=== PATIENT | male | born 1975 | race African-American/Black ===

== ENCOUNTER 2016-03-29 10:03 | Emergency (ER) | payer BC ==
[~2016-03-29] VITALS: Ht 193 cm; Wt 118.4 kg
--- NOTE | 2016-03-29 11:09 | RAD ---
Indication pain. AP oblique and lateral views of the left knee were obtained. No acute finding is seen. There is a small joint effusion
[2016-03-29 12:11] VITALS: BP 136/78
--- NOTE | 2016-03-29 12:27 | PHYS DOC ---
Past Medical History Past Medical History: No Pertinent History Past Surgical History: Other Additional Past Surgical Histo: left meniscus repair Alcohol Use: None Drug Use: None Adult General Chief Complaint Chief Complaint: KNEE INJURY HPI HPI Patient is a 41 year old male presents emergency department stating that he's had left knee meniscus repair in July. He states that last night he developed severe pain in his left knee and in the posterior part of the knee as well as posterior calf area. He denies any numbness or tingling down to the foot area. He states he has increased pain with ambulation. He denies taking anything for the pain and discomfort. Patient denies any trauma or injury to the knee. Review of Systems Review of Systems Constitutional: Denies fever or chills [] Eyes: Denies change in visual acuity, redness, or eye pain [] HENT: Denies nasal congestion or sore throat [] Respiratory: Denies cough or shortness of breath [] Cardiovascular: No additional information not addressed in HPI [] GI: Denies abdominal pain, nausea, vomiting, bloody stools or diarrhea [] : Denies dysuria or hematuria [] Musculoskeletal: Denies back pain. Left knee pain Integument: Denies rash or skin lesions [] Neurologic: Denies headache, focal weakness or sensory changes [] Current Medications Current Medications Current Medications Medications (Trade) Dose Ordered Sig/Faisal Start Time Stop Time Status Last Admin Dose Admin Acetaminophen/ Hydrocodone Bitart (Lortab 5/325) 1 tab 1X ONCE 03/29/16 13:45 03/29/16 13:46 DC 03/29/16 13:48 1 TAB Ibuprofen (Motrin) 800 mg 1X ONCE 03/29/16 12:45 03/29/16 12:46 DC Allergies Allergies Allergies Coded Allergies Type Severity Reaction Last Updated Verified No Known Drug Allergies 03/29/16 No Physical Exam Physical Exam Constitutional: Well developed, well nourished, no acute distress, non-toxic appearance. [] HENT: Normocephalic, atraumatic, bilateral external ears normal, oropharynx moist, no oral exudates, nose normal. [] Eyes: PERRLA, EOMI, conjunctiva normal, no discharge. [] Neck: Normal range of motion, no tenderness, supple, no stridor. [] Cardiovascular:Heart rate regular rhythm, no murmur [] Lungs & Thorax: Bilateral breath sounds clear to auscultation [] Skin: Warm, dry, no erythema, no rash. [] Back: No tenderness Extremities: Left knee tenderness noted to the posterior, left posterior calf pain with positive homans sign, no cyanosis, no clubbing, ROM intact, no edema. Peripheral pulses 2+. Cap refill brisk less than 2 seconds. Neurologic: Alert and oriented X 3, normal motor function, normal sensory function, no focal deficits noted. [] Psychologic: Affect normal, judgement normal, mood normal. [] Current Patient Data Vital Signs Vital Signs Date Time Temp Pulse Resp B/P Pulse Ox O2 Delivery O2 Flow Rate FiO2 03/29/16 13:48 18 Nasal Cannula 03/29/16 12:11 98.2 71 99 98.2 EKG EKG [] Radiology/Procedures Radiology/Procedures [facility] [address] [place] [address] IMAGING REPORT Signed PATIENT: SANJAY BRENNAN ACCOUNT: [id number] : 1975 LOCATION: ER AGE: 41 SEX: M EXAM STATUS: REG ER ORD. PHYSICIAN: MARCELL EDWARDS NP REASON: postiive homans sign, posterior calf and knee pain PROCEDURE: VENOUS LOWER EXTREMITY LEFT Left leg venous Doppler study: Clinical indications: Left leg swelling and pain. Findings: Duplex sonography (including giles scale evaluation and color flow and waveform spectral analysis) of the proximal aspect of the greater saphenous vein and the proximal aspect of the profunda femoral vein and the entire length of the common femoral and superficial femoral and popliteal veins and the tibioperoneal trunk and the proximal aspect of the posterior tibial and peroneal veins of the left leg was performed. Normal compressibility, augmentation of color Doppler flow after calf compression, and respiratory variation of Doppler flow is seen. Thus, there are no sonographic findings of deep venous thrombosis within these veins. Impression: There are no sonographic findings of deep venous thrombosis within the veins discussed above of the left lower extremity. 7 cm Hutchins's cyst is evident. DICTATED and SIGNED BY: BARAK RIVERA MD DATE: 03/29/16 5739 CC: CRUZ SALCIDO; MARCELL EDWARDS RIVET FLUNKY ~ [][facility] [address] [place], [place] [id number] IMAGING REPORT Signed PATIENT: SANJAY BRENNAN ACCOUNT: [id number] : 1975 LOCATION: ER AGE: 41 SEX: M EXAM STATUS: REG ER ORD. PHYSICIAN: MARCELL EDWARDS NP REASON: pain and discomfort PROCEDURE: KNEE LEFT 3V Indication pain. AP oblique and lateral views of the left knee were obtained. No acute finding is seen. There is a small joint effusion DICTATED and SIGNED BY: JAYDE FROST MD DATE: 03/29/16 1107 CC: CRUZ SALCIDO; MARCELL EDWARDS RIVET FLUNKY ~ Course & Med Decision Making Course & Med Decision Making Pertinent Labs and Imaging studies reviewed. (See chart for details) X-rays were negative for any fractures or bony abnormalities. Ultrasound identifies a Hutchins cyst approximately 7 liters. Patient will be provided with Dr. Castillo's name and number for follow-up. He'll be placed in a knee immobilizer to help with ambulation. He'll be provided with hydrocodone for pain and discomfort also recommended ibuprofen 800 mg every 8 hours with food. Patient will be discharged home in stable condition. He was also instructed hydrocodone will cause drowsiness do not take any be alert and oriented. Patient agrees with discharge instructions treatment regimens and follow-up recommendations. Since symptoms to return back to emergency department was provided. [] Dragon Disclaimer Dragon Disclaimer This electronic medical record was generated, in whole or in part, using a voice recognition dictation system. Departure Departure Impression: Primary Impression: Hutchins's cyst of knee Disposition: 01 HOME, SELF-CARE Condition: STABLE Referrals: CRUZ SALCIDO (PCP) Patient Instructions: Hutchins's Cyst Additional Instructions: Home to rest. Ice packs on 20 minutes off 20 minutes several times a day. Elevation as much as possible. With a knee immobilizer to follow-up with orthopedic. Follow-up with orthopedic in the next 3-5 days. Hydrocodone will cause drowsiness do not take if you need to be alert and oriented. Ibuprofen 800 mg every 8 hours with food stop taking few develop an upset stomach. Return back to emergency prior signs symptoms of become worse. Scripts Hydrocodone/Apap 5-325 (Goode 5-325 Tablet)1 Each Tablet1 Tab PO PRN Q6HRS PRN PAIN #10 TAB Prov:MARCELL EDWARDS NP 03/29/16 MARCELL EDWARDS NP Mar 29, 2016 12:27
[2016-03-29] MEDS ORDERED: IBUPROFEN 800 MG TABLET. PO ONE (12:45)
[2016-03-29] MEDS ORDERED: HYDROCODONE/APAP 5/325MG TABLET. PO ONE (13:45)
--- NOTE | 2016-03-29 14:06 | RAD ---
Left leg venous Doppler study: Clinical indications: Left leg swelling and pain. Findings: Duplex sonography (including giles scale evaluation and color flow and waveform spectral analysis) of the proximal aspect of the greater saphenous vein and the proximal aspect of the profunda femoral vein and the entire length of the common femoral and superficial femoral and popliteal veins and the tibioperoneal trunk and the proximal aspect of the posterior tibial and peroneal veins of the left leg was performed. Normal compressibility, augmentation of color Doppler flow after calf compression, and respiratory variation of Doppler flow is seen. Thus, there are no sonographic findings of deep venous thrombosis within these veins. Impression: There are no sonographic findings of deep venous thrombosis within the veins discussed above of the left lower extremity. 7 cm Hutchins's cyst is evident.
[2016-03-29] MEDS ORDERED: HYDR-971 PO (14:28)
== END 2016-03-29 14:41 | disposition home or self-care (01) ==
LOC: ER 10:03
DX: M71.22 Synovial cyst of popliteal space [Baker], left knee (principal)
CPT/HCPCS: 29505; 73562; 93971; 99284-25

== ENCOUNTER 2017-09-04 03:36 | Emergency (ER) | payer SELFPAY, BC ==
[2017-09-04] MEDS ORDERED: silver sulfADIAZINE 1% CREAM 25GM TUBE. TP (04:12)
[2017-09-04] MEDS: silver sulfADIAZINE 1% CREAM 25GM TUBE. TP (04:15)
== END 2017-09-04 04:21 | disposition home or self-care (01) ==
LOC: ER 03:36
DX: T22.012A Burn of unspecified degree of left forearm, initial encounter (principal); F17.210 Nicotine dependence, cigarettes, uncomplicated
CPT/HCPCS: 16000; 99284

== ENCOUNTER 2018-07-24 08:38 | Emergency (ER) | payer BC ==
[~2018-07-24] VITALS: Ht 190.5 cm; Wt 91.7 kg
[~2018-07-24 08:38] MED LIST: HYDR-3164 PO
--- NOTE | 2018-07-24 09:12 | RAD ---
EXAM: CHEST 1 VIEW History: Left-sided chest pain COMPARISON: 01/16/2005 TECHNIQUE: Single portable radiograph of the chest FINDINGS: The cardiac silhouette is unremarkable. Mild prominent bilateral interstitial lung markings. The costophrenic sulci are clear and well demarcated. IMPRESSION: Mild congestive changes. Electronically signed by: Max Cortez MD (07/24/2018 9:10 AM) [facility]
[2018-07-24 09:16] LABS: BASO % 1 % (0-3); EOS # 0.1 x10^3/uL (0.0-0.7); EOS % 2 % (0-3); HEMOGLOBIN 13.5 g/dL (13.0-17.5); LYMPH # 1.8 x10^3/uL (1.0-4.8); LYMPH % 37 % (24-48); MEAN CORPUSCULAR HEMOGLOBIN 33 pg (25-35); MEAN CORPUSCULAR HGB CONC 35 g/dL (31-37); MEAN CORPUSCULAR VOLUME 97 fL (79-100); MONO # 0.4 x10^3/uL (0.0-1.1); MONO % 9 % (0-9); NEUT # 2.5 x10^3uL (1.8-7.7); NEUT % 52 % (31-73); PLATELET COUNT 239 x10^3/uL (140-400); RED BLOOD COUNT 4.03 x10^6/uL (4.30-5.70); RED CELL DISTRIBUTION WIDTH 13.2 % (11.5-14.5); WHITE BLOOD COUNT 4.9 x10^3/uL (4.0-11.0)
--- NOTE | 2018-07-24 09:23 | EKG ---
[facility] [address] [place] [address] Test Date: 2018-07-24 Test Time: 08:44:40 Pat Name: SANJAY PLASCENCIA Department: Room: Gender: M [employer]: : 1975 Requested By: NETTE MARRUFO Order Number: [id number] Reading MD: Measurements Intervals [place] Rate: 57 P: 63 WI: 152 QRS: 68 QRSD: 94 T: 78 QT: 424 QTc: 416 Interpretive Statements SINUS RHYTHM QRS(T) CONTOUR ABNORMALITY CONSIDER ANTEROSEPTAL MYOCARDIAL DAMAGE CONSIDER INFERIOR MYOCARDIAL DAMAGE POSSIBLY ABNORMAL ECG RI6.01 No previous ECG available for comparison
[2018-07-24 09:24] LABS: PROTHROMBIN TIME PATIENT 12.9 SEC (11.7-14.0)
[2018-07-24 09:28] LABS: D-DIMER 0.33 ug/mlFEU (0.00-0.50)
[2018-07-24 09:36] LABS: CALCIUM 9.1 mg/dL (8.5-10.1); CREATININE 0.9 mg/dL (0.7-1.3); GFR 111.4; POTASSIUM 4.1 mmol/L (3.5-5.1)
[2018-07-24 09:43] LABS: ALBUMIN 3.9 g/dL (3.4-5.0); ALBUMIN/GLOBULIN RATIO 1.2 (1.0-1.7); TOTAL BILIRUBIN 1.6 mg/dL (0.2-1.0); TOTAL PROTEIN 7.2 g/dL (6.4-8.2)
[2018-07-24] MEDS ORDERED: CONTRAST GIVEN. MC PRN (10:00)
[2018-07-24] MEDS ORDERED: IOHEXOL 350 MG/ML 100 ML VIAL. IV ONE (10:00)
[2018-07-24 10:48] LABS: BARBITURATES NEG (NEG); BENZODIAZEPINES NEG (NEG); CANNABINOIDS POS (NEG); COCAINE NEG (NEG); METHADONE NEG (NEG); OPIATES NEG (NEG); PHENCYCLIDINE NEG (NEG)
[2018-07-24 10:52] LABS: AMPHETAMINE/METHAMPHETAMINE NEG (NEG)
--- NOTE | 2018-07-24 10:56 | RAD ---
CT ANGIOGRAPHY CHEST Indication: Chest pain. Shortness of breath. . Technique: After intravenous contrast administration, CT imaging was performed of the chest. MIP reconstructions were obtained. Exposure: One or more of the following individualized dose reduction techniques were utilized for this examination: 1. Automated exposure control 2. Adjustment of the mA and/or kV according to patient size 3. Use of iterative reconstruction technique. No prior studies for comparison. FINDINGS: No evidence of thyroid mass. Mild pulsatility artifact at the ascending aorta which measures about 3 cm diameter. No aortic aneurysm or dissection. No evidence of pulmonary embolism. No pericardial effusion. No significant pleural effusion. No significant lymph node enlargement. Lungs appear clear. No evidence of infiltrate. Trachea and mainstem bronchi are patent. There are degenerative changes of the thoracic spine. Vertebral body height and alignment are maintained. No destructive bone lesion is identified. Scans to the upper abdomen are limited by technique but no obvious acute abnormality. IMPRESSION: No evidence of pulmonary embolism. Electronically signed by: Bradnon Mlaone MD (07/24/2018 10:53 AM) [id number]
[2018-07-24] MEDS ORDERED: PRED20TA PO (11:09)
--- NOTE | 2018-07-24 11:11 | PHYS DOC ---
Past Medical History Past Medical History: Hypertension Past Surgical History: Other Additional Past Surgical Histo: LEFT KNEE REPAIR Additional Information: 5 cigarettes daily Alcohol Use: Rarely Drug Use: None Adult General Chief Complaint Chief Complaint: CHEST WALL PAIN HPI HPI Patient is a 43 year old male presented to ER today for evaluation of substernal chest pain that been going on for one month. Patient said the pain is sharp, hurt worse when he had a deep breath or cough. Patient denies any history of blood clot disorder, no history of recent travel, no recent operation. Patient had no family history of heart problem. Patient denies any history diabetic. Patient has history hypertension. Review of Systems Review of Systems Constitutional: Denies fever or chills [] Eyes: Denies change in visual acuity, redness, or eye pain [] HENT: Denies nasal congestion or sore throat [] Respiratory: Denies cough or shortness of breath [] Cardiovascular: No additional information not addressed in HPI [] GI: Denies abdominal pain, nausea, vomiting, bloody stools or diarrhea [] : Denies dysuria or hematuria [] Musculoskeletal: Denies back pain or joint pain [] Integument: Denies rash or skin lesions [] Neurologic: Denies headache, focal weakness or sensory changes [] Endocrine: Denies polyuria or polydipsia [] All other systems were reviewed and found to be within normal limits, except as documented in this note. Current Medications Current Medications Current Medications Medications (Trade) Dose Ordered Sig/Faisal Start Time Stop Time Status Last Admin Dose Admin Info (CONTRAST GIVEN -- Rx MONITORING) 1 each PRN DAILY PRN 07/24/18 10:00 07/26/18 09:59 Iohexol (Omnipaque 350 Mg/ml) 100 ml 1X ONCE 07/24/18 10:00 07/24/18 10:01 DC 07/24/18 10:15 100 ML Ketorolac Tromethamine (Toradol 30mg Vial) 30 mg 1X ONCE 07/24/18 11:15 07/24/18 11:16 DC Methylprednisolone Sodium Succinate (SOLU-Medrol 125MG VIAL) 125 mg 1X ONCE 07/24/18 11:15 07/24/18 11:16 DC Allergies Allergies Allergies Coded Allergies Type Severity Reaction Last Updated Verified No Known Drug Allergies 03/29/16 No Physical Exam Physical Exam Constitutional: Well developed, well nourished, no acute distress, non-toxic appearance. [] HENT: Normocephalic, atraumatic, bilateral external ears normal, oropharynx moist, no oral exudates, nose normal. [] Eyes: PERRLA, EOMI, conjunctiva normal, no discharge. [] Neck: Normal range of motion, no tenderness, supple, no stridor. [] Cardiovascular:Heart rate regular rhythm, no murmur [] chest pain is reproducible to palpation. Lungs & Thorax: Bilateral breath sounds clear to auscultation [] Abdomen: Bowel sounds normal, soft, no tenderness, no masses, no pulsatile masses. [] Skin: Warm, dry, no erythema, no rash. [] Back: No tenderness, no CVA tenderness. [] Extremities: No tenderness, no cyanosis, no clubbing, ROM intact, no edema. [] Neurologic: Alert and oriented X 3, normal motor function, normal sensory function, no focal deficits noted. [] Psychologic: Affect normal, judgement normal, mood normal. [] Current Patient Data Vital Signs Vital Signs Date Time Temp Pulse Resp B/P (MAP) Pulse Ox O2 Delivery O2 Flow Rate FiO2 07/24/18 10:20 56 16 149/79 (102) 99 Room Air 07/24/18 08:50 98.1 98.1 Lab Values Laboratory Tests Test 07/24/18 09:05 07/24/18 10:25 White Blood Count 4.9 x10^3/uL (4.0-11.0) Red Blood Count 4.03 x10^6/uL (4.30-5.70) L Hemoglobin 13.5 g/dL (13.0-17.5) Hematocrit 39.0 % (39.0-53.0) Mean Corpuscular Volume 97 fL (79-100) Mean Corpuscular Hemoglobin 33 pg (25-35) Mean Corpuscular Hemoglobin Concent 35 g/dL (31-37) Red Cell Distribution Width 13.2 % (11.5-14.5) Platelet Count 239 x10^3/uL (140-400) Neutrophils (%) (Auto) 52 % (31-73) Lymphocytes (%) (Auto) 37 % (24-48) Monocytes (%) (Auto) 9 % (0-9) Eosinophils (%) (Auto) 2 % (0-3) Basophils (%) (Auto) 1 % (0-3) Neutrophils # (Auto) 2.5 x10^3uL (1.8-7.7) Lymphocytes # (Auto) 1.8 x10^3/uL (1.0-4.8) Monocytes # (Auto) 0.4 x10^3/uL (0.0-1.1) Eosinophils # (Auto) 0.1 x10^3/uL (0.0-0.7) Basophils # (Auto) 0.0 x10^3/uL (0.0-0.2) Prothrombin Time 12.9 SEC (11.7-14.0) Prothrombin Time INR 1.0 (0.8-1.1) D-Dimer (Patricia) 0.33 ug/mlFEU (0.00-0.50) Sodium Level 143 mmol/L (136-145) Potassium Level 4.1 mmol/L (3.5-5.1) Chloride Level 105 mmol/L (98-107) Carbon Dioxide Level 27 mmol/L (21-32) Anion Gap 11 (6-14) Blood Urea Nitrogen 11 mg/dL (8-26) Creatinine 0.9 mg/dL (0.7-1.3) Estimated GFR (Cockcroft-Gault) 111.4 BUN/Creatinine Ratio 12 (6-20) Glucose Level 86 mg/dL (70-99) Calcium Level 9.1 mg/dL (8.5-10.1) Total Bilirubin 1.6 mg/dL (0.2-1.0) H Aspartate Amino Transferase (AST) 29 U/L (15-37) Alanine Aminotransferase (ALT) 47 U/L (16-63) Alkaline Phosphatase 86 U/L (46-116) Creatine Kinase 366 U/L (39-308) H Creatine Kinase MB (Mass) 3.6 ng/mL (0.0-3.6) Creatine Kinase MB Relative Index 1.0 % (0-4) Troponin I Quantitative < 0.017 ng/mL (0.000-0.055) [id number]-[id number]-Type Natriuretic Peptide 35 pg/mL (0-124) Total Protein 7.2 g/dL (6.4-8.2) Albumin 3.9 g/dL (3.4-5.0) Albumin/Globulin Ratio 1.2 (1.0-1.7) Urine Opiates Screen Neg (NEG) Urine Methadone Screen Neg (NEG) Urine Barbiturates Neg (NEG) Urine Phencyclidine Screen Neg (NEG) Urine Amphetamine/Methamphetamine Neg (NEG) Urine Benzodiazepines Screen Neg (NEG) Urine Cocaine Screen Neg (NEG) Urine Cannabinoids Screen Pos (NEG) Urine Ethyl Alcohol Neg (NEG) Laboratory Tests 07/24/18 09:05 Laboratory Tests 07/24/18 09:05 EKG EKG EKG WAS READ BY THIS PHYSICIAN AT 0845, RATE OF 57 BPM, NO STEMI, NSR. [] Radiology/Procedures Radiology/Procedures [][facility] [address] [place] [address] IMAGING REPORT Signed PATIENT: SANJAY PLASCENCIA ACCOUNT: [id number] : 1975 LOCATION: ER AGE: 43 SEX: M EXAM STATUS: REG ER ORD. PHYSICIAN: NETTE MARRUFO DO REASON: CHEST PAIN, SOA PROCEDURE: CT ANGIOGRAPHY CHEST CT ANGIOGRAPHY CHEST Indication: Chest pain. Shortness of breath. . Technique: After intravenous contrast administration, CT imaging was performed of the chest. MIP reconstructions were obtained. Exposure: One or more of the following individualized dose reduction techniques were utilized for this examination: 1. Automated exposure control 2. Adjustment of the mA and/or kV according to patient size 3. Use of iterative reconstruction technique. No prior studies for comparison. FINDINGS: No evidence of thyroid mass. Mild pulsatility artifact at the ascending aorta which measures about 3 cm diameter. No aortic aneurysm or dissection. No evidence of pulmonary embolism. No pericardial effusion. No significant pleural effusion. No significant lymph node enlargement. Lungs appear clear. No evidence of infiltrate. Trachea and mainstem bronchi are patent. There are degenerative changes of the thoracic spine. Vertebral body height and alignment are maintained. No destructive bone lesion is identified. Scans to the upper abdomen are limited by technique but no obvious acute abnormality. IMPRESSION: No evidence of pulmonary embolism. Electronically signed by: Brandon Malone MD (07/24/2018 10:53 AM) [id number] DICTATED and SIGNED BY: BRANDON MALONE MD DATE: 07/24/18 1053 Course & Med Decision Making Course & Med Decision Making Pertinent Labs and Imaging studies reviewed. (See chart for details) [] Dragon Disclaimer Dragon Disclaimer This electronic medical record was generated, in whole or in part, using a voice recognition dictation system. Departure Departure Impression: Primary Impression: Chest wall pain Additional Impression: Pleurisy Disposition: HOME, SELF-CARE Condition: STABLE Referrals: CRUZ SALCIDO (PCP) FOLLOW UP WITH YOUR DOCTOR FOR REEVUATION NEXT WEEK. Patient Instructions: Chest Wall Pain, Pleurisy Scripts Prednisone (PREDNISONE) 20 Mg Tablet 1 TAB PO DAILY, #10 TAB Prov: NETTE MARRUFO DO 07/24/18 Problem Qualifiers NETTE MARRUFO DO Jul 24, 2018 11:11
[2018-07-24] MEDS ORDERED: methylPREDNISolone SOD SUCC PF 125 MG/2 ML VIAL. IV ONE (11:15)
[2018-07-24] MEDS ORDERED: KETOROLAC 30 MG/ML VIAL. IV ONE (11:15)
[2018-07-24 11:24] VITALS: BP 137/89
== END 2018-07-24 11:30 | disposition home or self-care (01) ==
LOC: ER 08:38
DX: R09.1 Pleurisy (principal); I10 Essential (primary) hypertension; F17.210 Nicotine dependence, cigarettes, uncomplicated
CPT/HCPCS: 36415; 71045; 71275; 80053; 80307; 82553; 83880; 84484; 85025; 85379; 85610; 93005; 96374; 96375; 99285; J1885; J2930; Q9967

== ENCOUNTER → 2019-04-20 | Outpatient (CLI) | payer BC ==
[~2019-04-20] MED LIST changes: +PRED20TA PO
--- NOTE | 2019-04-20 18:04 | KCIC ---
Ultrasound of the right sternoclavicular joint HISTORY: Right sternoclavicular joint mass. TECHNIQUE: Targeted ultrasound is performed at the area of concern. FINDINGS: No evidence of soft tissue mass or fluid collection is identified in the area of concern by ultrasound. The area of the mass appears to correspond with the clavicle. Scanning of the contralateral region demonstrates symmetry. IMPRESSION: No abnormality is seen at the area of interest. The palpable protuberance may represent the patient's clavicle. If there is continued concern, could obtain CT or MRI scan. Electronically signed by: Brandon Malone MD (04/20/2019 6:01 PM) [id number]
== END | disposition home or self-care (01) ==
LOC: KCIC US 15:16
PROVIDERS: ATTEND Family Medicine
DX: R22.1 Localized swelling, mass and lump, neck (principal)
CPT/HCPCS: 76536

== ENCOUNTER 2020-04-23 00:35 | Emergency (ER) | payer SELFPAY ==
[~2020-04-23] VITALS: Ht 190.5 cm; Wt 122.7 kg
--- NOTE | 2020-04-23 00:50 | EKG ---
[facility] [address] [place] [address] Test Date: 2020-04-23 Test Time: 00:41:55 Pat Name: SANJAY BRENNAN Department: Room: Gender: M [employer]: : 1975 Requested By: SANCHEZ TEJADA Order Number: [id number] Reading MD: Measurements Intervals [place] Rate: 76 P: 52 NC: 188 QRS: 51 QRSD: 98 T: 51 QT: 380 QTc: 432 Interpretive Statements SINUS RHYTHM NO SPECIFIC ECG ABNORMALITIES RI6.01 No previous ECG available for comparison
[2020-04-23 01:04] LABS: BASO # 0.1 x10^3/uL (0.0-0.2); BASO % 1 % (0-3); EOS # 0.5 x10^3/uL (0.0-0.7); EOS % 7 % (0-3); HEMATOCRIT 37.9 % (39.0-53.0); HEMOGLOBIN 12.7 g/dL (13.0-17.5); LYMPH # 3.5 x10^3/uL (1.0-4.8); LYMPH % 42 % (24-48); MEAN CORPUSCULAR HEMOGLOBIN 31 pg (25-35); MEAN CORPUSCULAR HGB CONC 34 g/dL (31-37); MEAN CORPUSCULAR VOLUME 94 fL (79-100); MONO % 13 % (0-9); NEUT # 3.1 x10^3/uL (1.8-7.7); NEUT % 38 % (31-73); PLATELET COUNT 241 x10^3/uL (140-400); RED BLOOD COUNT 4.04 x10^6/uL (4.30-5.70); WHITE BLOOD COUNT 8.2 x10^3/uL (4.0-11.0)
[2020-04-23 01:19] LABS: CALCIUM 8.7 mg/dL (8.5-10.1); CREATININE 1.4 mg/dL (0.7-1.3); GFR 66.3; POTASSIUM 3.7 mmol/L (3.5-5.1)
[2020-04-23 01:25] LABS: ALBUMIN 3.5 g/dL (3.4-5.0); MAGNESIUM 2.2 mg/dL (1.8-2.4); TOTAL BILIRUBIN 0.6 mg/dL (0.2-1.0); TOTAL PROTEIN 7.1 g/dL (6.4-8.2)
--- NOTE | 2020-04-23 01:50 | RAD ---
EXAM: CHEST ONE VIEW. HISTORY: Chest pain. COMPARISON: 07/24/2018. FINDINGS: A frontal view of the chest is obtained. There are no confluent infiltrates. There is no pneumothorax or pleural effusion. The heart is not en larged. IMPRESSION: 1. No confluent infiltrates. Electronically signed by: Eliane Gan MD (04/23/2020 1:47 AM) [facility]
[2020-04-23] MEDS ORDERED: FURO40TA4 PO (02:20)
--- NOTE | 2020-04-23 02:20 | PHYS DOC ---
Past Medical History Past Medical History: Hypertension Past Surgical History: Other Additional Past Surgical Histo: LEFT KNEE REPAIR Smoking Status: Current Every Day Smoker Alcohol Use: Rarely Drug Use: None Adult General Chief Complaint Chief Complaint: CHEST PAIN HPI HPI Patient is a 45 year old male presenting the emergency department complaining new onset of shortness of breath and lower extremity swelling. Patient states that over the last 2 days he has been noticing worsening sensation of bilateral lower extremity edema. Patient states that over the last 3 hours he developed a sensation of shortness of breath whenever he lies flat. Patient states this is improved when he sits up. Denies any associated cough, nausea, vomiting, fever or chills. Patient states he called his primary care doctor who recommended him come to the emergency department. Review of Systems Review of Systems Constitutional: Denies fever or chills [] Eyes: Denies change in visual acuity, redness, or eye pain [] HENT: Denies nasal congestion or sore throat [] Respiratory: Denies cough or shortness of breath [] Cardiovascular: No additional information not addressed in HPI [] GI: Denies abdominal pain, nausea, vomiting, bloody stools or diarrhea [] : Denies dysuria or hematuria [] Musculoskeletal: Denies back pain or joint pain [] Integument: Denies rash or skin lesions [] Neurologic: Denies headache, focal weakness or sensory changes [] Endocrine: Denies polyuria or polydipsia [] All other systems were reviewed and found to be within normal limits, except as documented in this note. Allergies Allergies Allergies Coded Allergies Type Severity Reaction Last Updated Verified No Known Drug Allergies 03/29/16 No Physical Exam Physical Exam Constitutional: Well developed, well nourished, no acute distress, non-toxic appearance. [] HENT: Normocephalic, atraumatic, bilateral external ears normal, oropharynx moist, no oral exudates, nose normal. [] Eyes: PERRLA, EOMI, conjunctiva normal, no discharge. [] Neck: Normal range of motion, no tenderness, supple, no stridor. [] Cardiovascular:Heart rate regular rhythm, no murmur [] Lungs & Thorax: Bilateral breath sounds clear to auscultation [] Abdomen: Bowel sounds normal, soft, no tenderness, no masses, no pulsatile masses. [] Skin: Warm, dry, no erythema, no rash. [] Back: No tenderness, no CVA tenderness. [] Extremities: No tenderness, no cyanosis, no clubbing, ROM intact, no edema. [] Neurologic: Alert and oriented X 3, normal motor function, normal sensory function, no focal deficits noted. [] Psychologic: Affect normal, judgement normal, mood normal. [] Current Patient Data Vital Signs Vital Signs Date Time Temp Pulse Resp B/P (MAP) Pulse Ox O2 Delivery O2 Flow Rate FiO2 04/23/20 00:43 98.9 68 16 140/88 (105) 100 Room Air 98.9 Lab Values Laboratory Tests Test 04/23/20 00:45 White Blood Count 8.2 x10^3/uL (4.0-11.0) Red Blood Count 4.04 x10^6/uL (4.30-5.70) L Hemoglobin 12.7 g/dL (13.0-17.5) L Hematocrit 37.9 % (39.0-53.0) L Mean Corpuscular Volume 94 fL (79-100) Mean Corpuscular Hemoglobin 31 pg (25-35) Mean Corpuscular Hemoglobin Concent 34 g/dL (31-37) Red Cell Distribution Width 13.0 % (11.5-14.5) Platelet Count 241 x10^3/uL (140-400) Neutrophils (%) (Auto) 38 % (31-73) Lymphocytes (%) (Auto) 42 % (24-48) Monocytes (%) (Auto) 13 % (0-9) H Eosinophils (%) (Auto) 7 % (0-3) H Basophils (%) (Auto) 1 % (0-3) Neutrophils # (Auto) 3.1 x10^3/uL (1.8-7.7) Lymphocytes # (Auto) 3.5 x10^3/uL (1.0-4.8) Monocytes # (Auto) 1.0 x10^3/uL (0.0-1.1) Eosinophils # (Auto) 0.5 x10^3/uL (0.0-0.7) Basophils # (Auto) 0.1 x10^3/uL (0.0-0.2) Sodium Level 140 mmol/L (136-145) Potassium Level 3.7 mmol/L (3.5-5.1) Chloride Level 105 mmol/L (98-107) Carbon Dioxide Level 31 mmol/L (21-32) Anion Gap 4 (6-14) L Blood Urea Nitrogen 16 mg/dL (8-26) Creatinine 1.4 mg/dL (0.7-1.3) H Estimated GFR (Cockcroft-Gault) 66.3 BUN/Creatinine Ratio 11 (6-20) Glucose Level 79 mg/dL (70-99) Calcium Level 8.7 mg/dL (8.5-10.1) Magnesium Level 2.2 mg/dL (1.8-2.4) Total Bilirubin 0.6 mg/dL (0.2-1.0) Aspartate Amino Transferase (AST) 28 U/L (15-37) Alanine Aminotransferase (ALT) 41 U/L (16-63) Alkaline Phosphatase 82 U/L (46-116) Troponin I Quantitative < 0.017 ng/mL (0.000-0.055) GR-Dhv-[id number]-Type Natriuretic Peptide 196 pg/mL (0-124) H Total Protein 7.1 g/dL (6.4-8.2) Albumin 3.5 g/dL (3.4-5.0) Albumin/Globulin Ratio 1.0 (1.0-1.7) Lipase 221 U/L (73-393) Laboratory Tests 04/23/20 00:45 Laboratory Tests 04/23/20 00:45 EKG EKG Normal sinus rhythm, intervals normal, no ST or T wave changes, no STEMI Radiology/Procedures Radiology/Procedures EXAM: CHEST ONE VIEW. HISTORY: Chest pain. COMPARISON: 07/24/2018. FINDINGS: A frontal view of the chest is obtained. There are no confluent infiltrates. There is no pneumothorax or pleural effusion. The heart is not enlarged. IMPRESSION: 1. No confluent infiltrates. Electronically signed by: Eliane Gan MD (04/23/2020 1:47 AM) [facility] Course & Med Decision Making Course & Med Decision Making Pertinent Labs and Imaging studies reviewed. (See chart for details) 45M present emergency department with lower extremity swelling and shortness of breath which does raise concern for an acute CHF onset or exacerbation. Labs were obtained patient noted to have very mildly elevated creatinine and BNP. Patient likely has very early mild CHF. At this time patient is hemodynamically stable without any significant evidence of volume overload on chest x-ray. I had a conversation with the patient at this time will discharge home with a course of Lasix and the patient will follow up with his primary care physician Tyrel Disclaimer Tyrel Disclaimer This electronic medical record was generated, in whole or in part, using a voice recognition dictation system. Departure Departure Impression: Primary Impression: Cough Disposition: 01 DC HOME SELF CARE/HOMELESS Condition: GOOD Referrals: CRUZ SALCIDO (PCP) Patient Instructions: Heart Failure Additional Instructions: EMERGENCY DEPARTMENT GENERAL DISCHARGE INSTRUCTIONS Thank you for coming to [facility] Emergency Department (ED) today and trusting us with you care. We trust that you had a positive experience in our Emergency Department. If you wish to speak to the department management, you may call the Director at [phone]. YOUR FOLLOW UP INSTRUCTIONS ARE FOLLOWS: 1. Do you have a private Doctor? If you do not have a private doctor, please ask for a resource list of physicians or clinics that may be able to assist you with follow up care. 2. The Emergency Physicain has interpreted your x-rays. The X-Ray specialist will also review them. If there is a change in the findings, you will be notified in 48 hours when at all possible. 3. A lab test or culture has been done, your results will be reviewed and you will be notified if you need a change in treatment. ADDITIONAL INSTRUCTIONS AND INFORMATION: 1. Your care today has been supervised by a physician who is specially trained in emergency care. Many problems require more than one evaluation for a complete diagnosis and treatment. We recommend that you schedule your follow up appointment as recommended to ensure complete treatment of you illness or injury. If you are unable to obtain follow up care and continue to have a problem, or if your condition worsens, we recommend that you return to the ED. 2. We are not able to safely determine your condition over the phone nor are we able to give sound medical advice over the phone. For these safety reasons, if you call for medical advice we will ask you to come to the ED for further evaluation. 3. If you have any questions regarding these discharge instructions please call the ED at [phone]. SAFETY INFORMATION: In the interest of safety, wellness, and injury prevention; we encourage you to wear your sealbelt, if you smoke; quite smoking, and we encourage family to use a protective helmet for bicycling and other sporting events that present an increased risk for head injury. IF YOUR SYMPTOMS WORSEN OR NEW SYMPTOMS DEVELOP, OR YOU HAVE CONCERNS ABOUT YOUR CONDITION; OR IF YOUR CONDITION WORSENS WHILE YOU ARE WAITING FOR YOUR FOLLOW UP APPOINTMENT; EITHER CONTACT YOUR PRIMARY CARE DOCTOR, THE PHYSICIAN WHOSE NAME AND NUMBER YOU WERE GIVEN, OR RETURN TO THE ED IMMEDIATELY. Scripts Furosemide (FUROSEMIDE) 40 Mg Tablet 1 TAB PO DAILY, #30 TAB 5 Refills Prov: SANCHEZ TEJADA MD 04/23/20 SANCHEZ TEJADA MD Apr 23, 2020 02:20
[2020-04-23 02:40] VITALS: BP 115/66
[2020-04-23] MEDS ORDERED: FUROSEMIDE 40 MG TABLET. PO ONE (03:00)
== END 2020-04-23 02:55 | disposition home or self-care (01) ==
LOC: ER 00:35
DX: R05 Cough (principal); R06.02 Shortness of breath; R22.43 Localized swelling, mass and lump, lower limb, bilateral; I10 Essential (primary) hypertension; F17.200 Nicotine dependence, unspecified, uncomplicated
CPT/HCPCS: 36415; 71045; 80053; 83690; 83735; 83880; 84484; 85025; 93005; 99285-25